=== PATIENT | male | born 1985 | race Caucasian/White ===

== ENCOUNTER 2016-04-09 00:40 | Emergency (ER) | payer SELFPAY ==
[~2016-04-09] VITALS: Ht 175.3 cm; Wt 77.3 kg
[~2016-04-09 00:40] MED LIST: BACTRIM DS 8001 TAB PO; CEPHALEXIN500 M1 PO; DOXYCYCLINE 10100 MG PO; LORTAB 5/500 501 TAB PO; LORTAB 7.5/5001 TAB PO; METHOCARBAMOL500 MG PO; NAPROSYN500 MG PO; NO HOME MEDICATIONS; NORCO 325 MG-51 TAB PO; NORCO 325 MG-7.1 TAB PO; PERCOCET 325 MG1 TA2 PO; SEPTRA DS 8001 TAB PO; VICODIN 5/5001 UDTAB PO
[2016-04-09 00:44] VITALS: BP 140/86; PULSE 84; TEMP 97.6
[2016-04-09] MEDS ORDERED: DOXYCYCLINE 10100 MG PO (01:18)
== END 2016-04-09 01:34 | disposition home or self-care (01) ==
LOC: COL.ER 00:40
DX: S61.432A Puncture wound without foreign body of left hand, initial encounter (principal); W27.0XXA Contact with workbench tool, initial encounter; Y92.009 Unspecified place in unspecified non-institutional (private) residence as the place of occurrence of the external cause; Z86.14 Personal history of Methicillin resistant Staphylococcus aureus infection; Z88.0 Allergy status to penicillin

== ENCOUNTER 2016-09-22 12:56 | Emergency (ER) | payer SELFPAY ==
[~2016-09-22] VITALS: Ht 152.4 cm; Wt 77.3 kg
[2016-09-22 12:57] VITALS: BP 138/81; PULSE 102; TEMP 97.9
[2016-09-22] MEDS ORDERED: PERCOCET 325 MG1 TA2 PO (13:20)
== END 2016-09-22 13:36 | disposition home or self-care (01) ==
LOC: COL.ER 12:56
DX: M54.5 Low back pain (principal); M54.6 Pain in thoracic spine; F17.210 Nicotine dependence, cigarettes, uncomplicated

== ENCOUNTER 2016-11-04 18:12 | Emergency (ER) | payer SELFPAY ==
[~2016-11-04] VITALS: Ht 175.3 cm; Wt 79.5 kg
[2016-11-04 18:17] VITALS: BP 165/87; TEMP 97.7
[2016-11-04 19:11] VITALS: PULSE 95
== END 2016-11-04 19:13 | disposition home or self-care (01) ==
LOC: COL.ER 18:12
DX: S61.211A Laceration without foreign body of left index finger without damage to nail, initial encounter (principal); J45.909 Unspecified asthma, uncomplicated; I10 Essential (primary) hypertension; F17.210 Nicotine dependence, cigarettes, uncomplicated; W26.0XXA Contact with knife, initial encounter; Y92.009 Unspecified place in unspecified non-institutional (private) residence as the place of occurrence of the external cause

== ENCOUNTER 2017-01-15 18:40 | Emergency (ER) | payer SELFPAY ==
[~2017-01-15] VITALS: Ht 177.8 cm; Wt 79.5 kg
[~2017-01-15 18:40] MED LIST changes: +ULTRAM 50MG TAB50 MG PO
[2017-01-15 18:42] VITALS: TEMP 98.8
[2017-01-15] MEDS ORDERED: NAPROSYN500 MG PO (19:56)
[2017-01-15 19:57] VITALS: BP 142/96; PULSE 104
== END 2017-01-15 20:07 | disposition home or self-care (01) ==
LOC: COL.ER 18:40
DX: M54.5 Low back pain (principal); Z87.39 Personal history of other diseases of the musculoskeletal system and connective tissue
CPT/HCPCS: J1885